=== PATIENT | female | born 1950 | race Caucasian/White ===

== ENCOUNTER 2021-02-13 03:50 | Outpatient (CLI) | payer MEDICARE, BC, SELFPAY ==
[2021-02-13 08:41] LABS: Abs Immature Grans 0.03 10^3/uL (0.0-0.06); Absolute Basophil Count 0.03 10^3/uL (0.0-0.2); Absolute Eosinophil Count 0.07 10^3/uL (0.0-0.7); Absolute Lymphocyte Count 1.37 10^3/uL (1.2-3.4); Absolute Monocyte Count 0.65 10^3/uL (0.1-0.8); Absolute Neutrophil Count 2.29 10^3/uL (1.2-6.7); Basophils % 0.7; Eosinophils % 1.6; HCT 37.6 % (36.0-46.0); HGB 11.9 g/dL (11.2-15.7); Immature Grans % 0.7; Lymphocytes % 30.9; MCH 28.7 pg (27.0-33.0); MCHC 31.6 % (32.0-36.0); MCV 90.6 fL (80-95); MPV 8.4 fL (8.0-11.0); Monocytes % 14.6; Neutrophils % 51.5; Nucleated RBC 0 %; Platelet Count 194 10^3/uL (130-400); RBC 4.15 10^6/uL (3.93-5.22); RDW 13.2 % (11.7-14.6); RDW-SD 43.3 fL; WBC 4.44 10^3/uL (4.4-10.8)
[2021-02-13 08:57] LABS: ALT 44 U/L (14-59); AST 21 U/L (15-37); Albumin 3.4 g/dL (3.4-5.0); Alkaline Phosphatase 68 U/L (46-116); Anion Gap 5.8 mmol/L (3-11); BUN 14 mg/dL (7-18); Bilirubin, Total 0.3 mg/dL (0.2-1.0); CO2 29.2 mmol/L (21.0-32.0); CREATININE 0.8 mg/dL (0.55-1.02); Chloride 105 mmol/L (98-107); Glucose 90 mg/dL (74-106); Potassium 4.4 mmol/L (3.5-5.1); Sodium 140 mmol/L (136-145); Total Protein 6.6 g/dL (6.4-8.2)
== END 2021-02-13 03:51 | disposition home or self-care (01) ==
LOC: LBO 03:50
PROVIDERS: PCP Family Medicine; Visit Provider Internal Medicine Medical Oncology
DX: C34.31 Malignant neoplasm of lower lobe, right bronchus or lung (principal)
CPT/HCPCS: 36415; 80053; 85025

== ENCOUNTER 2021-03-06 03:36 | Outpatient (CLI) | payer MEDICARE, BC, SELFPAY ==
[2021-03-06 12:12] LABS: Abs Immature Grans 0.03 10^3/uL (0.0-0.06); Absolute Basophil Count 0.02 10^3/uL (0.0-0.2); Absolute Eosinophil Count 0.04 10^3/uL (0.0-0.7); Absolute Lymphocyte Count 1.47 10^3/uL (1.2-3.4); Absolute Monocyte Count 0.64 10^3/uL (0.1-0.8); Absolute Neutrophil Count 2.59 10^3/uL (1.2-6.7); Basophils % 0.4; Eosinophils % 0.8; HCT 36.5 % (36.0-46.0); HGB 11.5 g/dL (11.2-15.7); Immature Grans % 0.6; Lymphocytes % 30.7; MCH 29.3 pg (27.0-33.0); MCHC 31.5 % (32.0-36.0); MCV 93.1 fL (80-95); MPV 8.5 fL (8.0-11.0); Monocytes % 13.4; Neutrophils % 54.1; Nucleated RBC 0 %; Platelet Count 191 10^3/uL (130-400); RBC 3.92 10^6/uL (3.93-5.22); RDW 14.1 % (11.7-14.6); RDW-SD 46.7 fL; WBC 4.79 10^3/uL (4.4-10.8)
[2021-03-06 12:25] LABS: ALT 42 U/L (14-59); AST 25 U/L (15-37); Albumin 3.5 g/dL (3.4-5.0); Alkaline Phosphatase 66 U/L (46-116); Anion Gap 4.5 mmol/L (3-11); BUN 13 mg/dL (7-18); Bilirubin, Total 0.2 mg/dL (0.2-1.0); CO2 29.5 mmol/L (21.0-32.0); CREATININE 0.7 mg/dL (0.55-1.02); Calcium 9.1 mg/dL (8.5-10.1); Chloride 106 mmol/L (98-107); Glucose 77 mg/dL (74-106); Potassium 3.9 mmol/L (3.5-5.1); Sodium 140 mmol/L (136-145); Total Protein 6.7 g/dL (6.4-8.2)
== END 2021-03-06 03:37 | disposition home or self-care (01) ==
LOC: LBO 03:36
PROVIDERS: PCP Family Medicine; Visit Provider Internal Medicine Medical Oncology
DX: C34.31 Malignant neoplasm of lower lobe, right bronchus or lung (principal)
CPT/HCPCS: 36415; 80053; 85025

== ENCOUNTER 2021-03-27 01:42 | Outpatient (CLI) | payer MEDICARE, BC, SELFPAY ==
--- OUTSIDE RECORDS SUMMARY | 2021-03-27 01:45 | XMS_ITS ---
:1950 Author Care Team Providers Name Role Phone CARYL COLLIER MD General Surgeon [phone] NATALIIA VALENTE Primary Care Provider [phone] Allergies Code Code System Name Reaction Severity Status Onset NKDA ? Medications Name Status Start Date Stop Date ? ? atorvastatin 20 mg tablet Active ? Not av ailable Take 1 tablet by mouth once daily benzonatate 200 mg capsule Completed ? 11/16 TAKE 1 CAPSULE BY MOUTH THREE TIMES DAILY NEEDED FOR COUGH cephalexin 500 mg capsule Completed ? 2020 TAKE 1 CAPSULE BY MOUTH THREE TIMES DAILY FOR 7 DAYS doxycycline hyclate 100 mg capsule Completed ? 11/16/2020 TAKE 1 CAPSULE BY MOUTH TWICE DAILY ibuprofen 600 mg tablet Completed ? 12/02/19 21 Take 1 tablet 3 times a day by oral route. lorazepam 0.5 mg tablet Completed ? 01/12/20 21 Take 1 tablet 1 hr prior to Procedure. If needed may place 1 tab under tongue 15 min prior to procedure methylprednisolone 4 mg tablets in a dose pack Completed ? 11/16/2020 USE DIRECTED ON PACKAGE mupirocin 2 % topical ointment Completed ? 0 03/16/2019 Problems Name Status Onset Date Source ? Basal Cell Carcinoma of Skin Active 03/16/2019 ? Microscopic Hematuria Active 03/16/2019 ? Palpitations Active 03/16/2019 ? Osteopenia Active 03/30/2020 ? Adenocarcinoma of Lung Active 12/21/2020 ? Procedures Date Name Performed by ? 12/16/2020 Bronchoscopy W/biopsy(s) Information not available Notes: Dr. Christian Turk [facility] / normal airway exam, enlarged node at 11Rs was biopsied, staging examination was performed 04/22/2019 Biopsy of Colon Information not avai lable Notes: [facility] 04/22/2019 Colonoscopy Information not avai lable Notes: polyps; 11-04-2013; 01/28/2006 03/16/2019 DEXA, Axial Skeleton [facility] Radiology (Internal) [address] [place] [address] (Work Place) 03/16/2019 MAMMO, Screening, Tomosynthesis, [facility] Radiology (Internal) Bilateral [address] [place] [address] (Work Place) 03/30/2020 MAMMO, Screening, Tomosynthesis, [facility] Radiology (Internal) Bilateral [address] [place] [address] (Work Place) 11/16/2020 XR, Shoulder, 2 or More View [facility] Radiology (Internal) [address] [place] [address] (Work Place) 11/23/2020 CT, Chest, W/ Contrast [facility] Radiology (Internal) [address] [place] [address] (Work Place) Notes: Patient reports having bi opsy for skin cancer. Results Lab Results Date Name Specimen Result Interpretation Description Value Range Status Address ? 11/28/2020 Creatinine, S ? Crea 0.70 0.52-1.04 Final [place] Serum or mg/dL mg/dL [facility] (Internal) : [address] 03/30/2020 CMP, Serum or S ? g/r 101 74-106 Final [facility] Plasma mg/dL mg/dL [facility] L [facility] (Internal) : [address] ? ? S ? Bun 16 mg/dL 7-17 mg/dL Final Nort h [facility] L ab (Internal) : [address] ? ? S ? Crea 0.80 0.52-1.04 Final North mg/dL mg/dL [facility] L ab (Internal) : [address] ? ? S ? Ca 9.5 8.4-10.2 Final North mg/dL mg/dL [facility] (Internal) : [address] ? ? S ? Na 137 137-145 Final [facility] mmol/L mmol/L [facility] (Internal) : [address] ? ? S ? K 4.4 3.5-5.1 Final [facility] mmol/L mmol/L [facility] ([facility] : [address] ? ? S ? Cl 102 98-107 Final [place] mmol/L mmol/L [facility] (Internal) : [address] ? ? S ? Tco2 27.0 22.0-30.0 Final [place] mmol/L mmol/L [facility] (Internal) : [address] ? ? S ? Tp 6.7 g/dL 6.3-8.2 Final [place] g/dL [facility] (Internal) : [address] ? ? S ? Alb 4.1 g/dL 3.5-5.0 Final [place] g/dL [facility] (Internal) : [address] ? ? S ? Tbil 0.4 0.2-1.3 Final [place] mg/dL mg/dL [facility] (Internal) : [address] ? ? S ? Alp 64 U/L 38-126 U/L Final [facility] (Internal) : [address] ? ? S ? Alt 15 U/L 9-52 U/L Final [place] (Sgpt) [facility] (Internal) : [address] ? ? S ? Ast 27 U/L 14-36 U/L Final [place] (Sgot) [facility] (Internal) : [address] 03/30/2020 Lipid Panel, S High Chol 263 50-200 Final [place] Serum mg/dL mg/dL [facility] (Internal) : [address] ? ? S ? Trig 75 mg/dL 10-150 Final [place] mg/dL [facility] (Internal) : [address] ? ? S High Hdl 62 mg/dL 40-60 Final North mg/dL [facility] (Internal) : [address] ? ? S High Ldl 186 0-130 Final North mg/dL mg/dL [facility] (Internal) : [address] 04/22/2019 Pathology TISS - Report results ? Final N orth Study below [facility] (Internal) : [address] 03/16/2019 BMP, Serum or S - g/r 85 mg/dL 74-106 Florencia l North Plasma mg/dL [facility] (Internal) : [address] ? ? S High Bun 20 mg/dL 7-17 mg/dL Final Nort [facility] (Internal) : [address] ? ? S - Crea 0.70 0.52-1.04 Final [place] mg/dL mg/dL [facility] (Internal) : [address] ? ? S - Ca 9.0 8.4-10.2 Final [place] mg/dL mg/dL [facility] (Internal) : [address] ? ? S - Na 140 137-145 Final [place] mmol/L mmol/L [facility] (Internal) : [address] ? ? S - K 4.2 3.5-5.1 Final [place] mmol/L mmol/L [facility] (Internal) : [address] ? ? S - Cl 105 98-107 Final [place] mmol/L mmol/L [facility] (Internal) : [address] ? ? S - Tco2 29.0 22.0-30.0 Final North mmol/L mmol/L [facility] (Internal) : [address] 03/16/2019 Lipid Panel, S High Chol 252 50-200 Final [place] Serum mg/dL mg/dL [facility] (Internal) : [address] ? ? S - Trig 64 mg/dL 10-150 Final North mg/dL [facility] (Internal) : [address] ? ? S High Hdl 69 mg/dL 40-60 Final North mg/dL [facility] (Internal) : [address] ? ? S High Ldl 170 0-130 Final North mg/dL mg/dL [facility] (Internal) : [address] 02/28/2018 Lipid Panel, S High Chol 232 50-200 Final [place] Serum mg/dL mg/dL [facility] (Internal) : [address] ? ? S - Trig 59 mg/dL 10-150 Final [place] mg/dL [facility] (Internal) : [address] ? ? S High Hdl 68 mg/dL 40-60 Final [place] mg/dL [facility] (Internal) : [address] ? ? S High Ldl 152 0-130 Final [place] mg/dL mg/dL [facility] (Internal) : [address] 02/28/2018 Glucose, S - Fbs 92 mg/dL 74-106 Final No rth Fasting, mg/dL [facility] Serum/plasma Hosp ital Lab (Internal) : [address] 02/28/2018 TSH, Serum or S - Tsh 1.60 0.47-4.68 Fin al [place] Plasma u[IU]/mL u[IU]/mL [facility] : [address] 02/24/2018 Pap Test, MISC - Hpv see ? Final [facility] Thinprep, report [facility] ([facility] : [address] ? ? MISC - Pap see ? Final [place] report [facility] (Internal) : [address] ? ? MISC - Report (added) ? Corrected North results [facility] (Internal) : [address] Past Encounters 01/11/2021 Adenocarcinoma of Lung Klever Lima MD: [address] [facility] [address], Ph. 12/01/2020 Primary Malignant Neoplasm of Lung; Pain of Right Shoulder Joint Klever Lima MD: [address] [facility] [address], Ph. 11/30/2020 Carlos Jackson MD: [address] [facility] [facility] [address], [address], [place] [address], Ph. 11/16/2020 Pain of Right Shoulder Joint Klever Lima MD: [address] [facility] [address], Ph. 03/30/2020 Adult Health Examination; Administration of Influenza Vaccine; Screening Mammography; Hyperlipidemia; Impacted Cerumen in Left Ear AMBROSIO Gonzalez: [address] [place] [phone], Ph. Social History Tobacco Smoking Status Former Smoker Notes: quit 19 Vaccine List Vaccine Type influenza, high-dose, quadrivalent 03/30/2020?0.7 mL influenza, injectable, quadrivalent 07/08/2016 05/05/2018 04/30/2019 pneumococcal conjugate PCV 13 05/05/2018 pneumococcal polysaccharide PPV23 02/07/2016 tetanus toxoid, adsorbed 05/08/2012 Notes: Patient reports she had b oth COVID vaccines in 07/2020, and 08/2020. Plan of Care Reminders Provider Appointments None ? ? recorded. Lab None ? ? recorded. Referral None ? ? recorded. Procedures None ? ? recorded. Surgeries None ? ? recorded. Imaging None ? ? recorded. Vitals 01/11/2021 09:00AM Follow Up 20 Height Weight BMI Blood Pressure 158.75 cm 63.11 kg 25 kg/m2 150/70 mm[Hg] 12/01/2020 10:20AM Same Day 20 Height Blood Pressure 158.75 cm 138/78 mm[Hg] 11/30/2020 02:15PM Consult 30 Height Weight BMI 158.75 cm 64.68 kg 25.7 kg/m2 11/16/2020 02:00PM Acute 20 Height Weight BMI Blood Pressure 158.75 cm 66.45 kg 26.4 kg/m2 112/70 mm[Hg] 03/30/2020 08:20AM AWV 40 Height Weight BMI Blood Pressure 158.75 cm 67.19 kg 26.7 kg/m2 128/78 mm[Hg] 03/16/2019 07:40AM New Patient 40 Height Weight BMI Blood Pressure 158.75 cm 63.67 kg 25.3 kg/m2 130/70 mm[Hg]
--- OUTSIDE RECORDS SUMMARY | 2021-03-27 01:45 | XMS_ITS | Encounter Summary ---
:1950 Author Care Team Providers Name Role Phone Tiesha VALENTE Primary Care Provider [phone] Triston Purdy MD General Surgeon [phone] Reason for Visit None recorded. Assessment and Plan 1. Adenocarcinoma of lung Patient with adenocarcinoma of lung which she is asymptomatic At [facility] Pulmonology, surgery, oncology. Patient is considered for chemotherapy and then surgery. No note of patient needing radiation oncology. At this point a role is as medical home for the patient ? 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 Plan of Care Reminders Provider Appointments Awv 40 04/04/2021 Clarita levy 7:40AM AMBROSIO Gilbert ? Return to on or around Triston Purdy, Office 04/22/2023 Lab None recorded. ? ? Referral [employer] 01/11/2021 [facility] christina Pulmonary Referral Procedures None recorded. ? ? Surgeries None recorded. ? ? Imaging None recorded. ? ? Medications Name Start Date ? ? atorvastatin 20 mg tablet ? Take 1 tablet by mouth once daily Medications Administered None recorded. Vitals Height Weight BMI Blood Pressure 5 ft 2.5 in 139 lbs 2 oz 25 kg/m2 150/70 mm[Hg] Results Lab Results None recorded. Allergies Code Code System Name Reaction Severity Onset NKDA ? ? ? Problems Name Status Onset Date Source ? Basal Cell Carcinoma of Skin Active 03/16/2019 ? Microscopic Hematuria Active 03/16/2019 ? Palpitations Active 03/16/2019 ? Osteopenia Active 03/30/2020 ? Adenocarcinoma of Lung Active 12/21/2020 ? Procedures Date Name Performed by ? 12/16/2020 Bronchoscopy W/biopsy(s) Information not available Notes: Dr. Christian Turk [facility] / normal airway exam, enlarged node at 11Rs was biopsied, staging examination was performed 04/22/2019 Biopsy of Colon Information not avai lable Notes: [facility] 04/22/2019 Colonoscopy Information not avai lable Notes: polyps; 11-04-2013; 01/28/2006 Notes: Patient reports having bi opsy for skin cancer. Vaccine List Vaccine Type influenza, high-dose, quadrivalent 03/30/2020?0.7 mL influenza, injectable, quadrivalent 07/08/2016 05/05/2018 04/30/2019 pneumococcal conjugate PCV 13 05/05/2018 pneumococcal polysaccharide PPV23 02/07/2016 tetanus toxoid, adsorbed 05/08/2012 Notes: Patient reports she had b oth COVID vaccines in 07/2020, and 08/2020. Social History Tobacco Smoking Status Former Smoker Notes: quit 19 Are you currently employed? Y What is your code status? 0 How much tobacco do you chew? none Animal exposure? Y Notes: Cat. What is your level of alcohol Moderate Notes: 1-3 beer per week consumption? Education 12 Have you used IV drugs? N Are you blind or do you have N Notes: W ears corrective difficulty seeing? lenses What was the date of your most 11/16/2020 recent tobacco screening? Do you or have you ever used Never used electronic e-cigarettes or vape? cigarettes Do you have an advanced Y Notes: COLST 03/30/2020, directive? CPR only if witnesse d arrest What is your exercise level? None Live alone or with others? 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 coffee/day What is your occupation? self employed Family History Relation Problem Onset Age of Age Notes Father Heart disease (No N/A , [place] 5 3 Information) yo, pos family history of premature CAD o n father's side Mother Family history of (No N/A Colon Canc er cancer Information) Mother Hyperlipidemia (No N/A (No Notes) Information) Sister Family history of (No N/A Thyroid Ca ncer, cancer Information) Breast Cancer (60s) Functional Status No Impairment. Past Encounters 01/11/2021 Adenocarcinoma of Lung Klever Lima MD: [address] [place] [address], Ph. History of Present Illness Note: <p>12/01/2020: 70 year old female being seen in clinic today to discuss Chest CT from 11/30/2020.</p><p>CT shows spiculated lesion in lung that is HIGHLY suspicious for malignancy</p><p>initially caught after xr shoulder detected nodule in lung and was advised to get CT chest</p><p>h/o smoking</p><p>discussed with radiology and he recommended pulmonology consult for bronchoscopy as this would be difficult to obtain for biopsy per IR</p><p>pt also gildardo have onc consult</p><p>pt with no chest pain/dyspnea</p><p&gt ;
</p><p>01/11/2021: Pt following up from CT chest, and [facility] pulmonary consult on 12/12/2020. Patient has been switched over to [facility] as per the request from pulmonology at [facility] per patient because of the complex nature of the lesion sent over to [facility] for resources. Patient hasreferral to surgery, pulmonology and oncology. There is consideration for 4 rounds of chemotherapy infusion pending follow-up appointment pending appointment with surgery to discuss potential surgical resection as well as port placement. Needs a new referral to pulmonology at [facility]</p>Review of Systems: ROS as noted in the HPI Review of Systems None recorded. Physical Exam ? Notes: <p>
</p>
[2021-03-27 11:07] LABS: Abs Immature Grans 0.03 10^3/uL (0.0-0.06); Absolute Basophil Count 0.02 10^3/uL (0.0-0.2); Absolute Eosinophil Count 0.08 10^3/uL (0.0-0.7); Absolute Lymphocyte Count 1.36 10^3/uL (1.2-3.4); Absolute Monocyte Count 0.65 10^3/uL (0.1-0.8); Absolute Neutrophil Count 1.77 10^3/uL (1.2-6.7); Basophils % 0.5; HCT 32.7 % (36.0-46.0); HGB 10.3 g/dL (11.2-15.7); Immature Grans % 0.8; Lymphocytes % 34.8; MCH 29.6 pg (27.0-33.0); MCHC 31.5 % (32.0-36.0); MPV 8.6 fL (8.0-11.0); Monocytes % 16.6; Neutrophils % 45.3; Nucleated RBC 0 %; Platelet Count 176 10^3/uL (130-400); RBC 3.48 10^6/uL (3.93-5.22); RDW 14.9 % (11.7-14.6); RDW-SD 49.9 fL; WBC 3.91 10^3/uL (4.4-10.8)
[2021-03-27 11:22] LABS: ALT 51 U/L (14-59); AST 38 U/L (15-37); Albumin 3.4 g/dL (3.4-5.0); Alkaline Phosphatase 63 U/L (46-116); Anion Gap 3.6 mmol/L (3-11); BUN 13 mg/dL (7-18); Bilirubin, Total 0.3 mg/dL (0.2-1.0); CO2 32.4 mmol/L (21.0-32.0); CREATININE 0.7 mg/dL (0.55-1.02); Calcium 9.2 mg/dL (8.5-10.1); Chloride 106 mmol/L (98-107); Glucose 102 mg/dL (74-106); Potassium 4.3 mmol/L (3.5-5.1); Sodium 142 mmol/L (136-145); Total Protein 6.5 g/dL (6.4-8.2)
== END 2021-03-27 01:43 | disposition home or self-care (01) ==
LOC: LBO 01:43
PROVIDERS: PCP Family Medicine; Visit Provider Internal Medicine Medical Oncology
DX: C34.31 Malignant neoplasm of lower lobe, right bronchus or lung (principal)
CPT/HCPCS: 36415; 80053; 85025

== ENCOUNTER 2022-05-29 02:54 | Outpatient (CLI) | payer MEDICARE, BC, SELFPAY ==
[2022-05-29 11:44] LABS: Abs Immature Grans 0.03 10^3/uL (0.0-0.06); Absolute Basophil Count 0.07 10^3/uL (0.0-0.2); Absolute Eosinophil Count 0.14 10^3/uL (0.0-0.7); Absolute Lymphocyte Count 1.65 10^3/uL (1.2-3.4); Absolute Monocyte Count 0.85 10^3/uL (0.1-0.8); Absolute Neutrophil Count 4.42 10^3/uL (1.2-6.7); HCT 40.1 % (36.0-46.0); HGB 12.9 g/dL (11.2-15.7); Immature Grans % 0.4; MCH 27.9 pg (27.0-33.0); MCHC 32.2 % (32.0-36.0); MCV 87 fL (80-95); MPV 8.7 fL (8.0-11.0); Monocytes % 11.9; Neutrophils % 61.7; Platelet Count 194 10^3/uL (130-400); RBC 4.62 10^6/uL (3.93-5.22); RDW 12.2 % (11.7-14.6); RDW-SD 39.3 fL; WBC 7.16 10^3/uL (4.4-10.8)
[2022-05-29 12:07] LABS: ALT 17 U/L (14-59); AST 18 U/L (15-37); Albumin 3.9 g/dL (3.4-5.0); Alkaline Phosphatase 77 U/L (46-116); Anion Gap 5.9 mmol/L (3-11); BUN 16 mg/dL (7-18); Bilirubin, Total 0.4 mg/dL (0.2-1.0); CO2 29.1 mmol/L (21.0-32.0); CREATININE 0.9 mg/dL (0.55-1.02); Calcium 9.2 mg/dL (8.5-10.1); Chloride 98 mmol/L (98-107); Estimated GFR 67.92 (mL/min/1.73m2); Glucose 90 mg/dL (74-106); Potassium 4.2 mmol/L (3.5-5.1); Sodium 133 mmol/L (136-145); Total Protein 7.2 g/dL (6.4-8.2)
== END 2022-05-29 02:55 | disposition home or self-care (01) ==
LOC: LBO 02:54
PROVIDERS: PCP Family Medicine; Visit Provider Internal Medicine Medical Oncology
DX: C77.1 Secondary and unspecified malignant neoplasm of intrathoracic lymph nodes (principal)
CPT/HCPCS: 36415; 80053; 83735; 85025

== ENCOUNTER 2022-06-04 03:04 | Outpatient (CLI) | payer MEDICARE, BC, SELFPAY ==
[2022-06-04 07:44] LABS: Abs Immature Grans 0.03 10^3/uL (0.0-0.06); Absolute Basophil Count 0.05 10^3/uL (0.0-0.2); Absolute Eosinophil Count 0.12 10^3/uL (0.0-0.7); Absolute Lymphocyte Count 1.02 10^3/uL (1.2-3.4); Absolute Monocyte Count 0.31 10^3/uL (0.1-0.8); Absolute Neutrophil Count 2.87 10^3/uL (1.2-6.7); Basophils % 1.1; Eosinophils % 2.7; HCT 39.7 % (36.0-46.0); HGB 12.8 g/dL (11.2-15.7); Immature Grans % 0.7; Lymphocytes % 23.2; MCH 28.1 pg (27.0-33.0); MCHC 32.2 % (32.0-36.0); MCV 87 fL (80-95); MPV 9.1 fL (8.0-11.0); Neutrophils % 65.3; Platelet Count 196 10^3/uL (130-400); RBC 4.55 10^6/uL (3.93-5.22); RDW 12.2 % (11.7-14.6); RDW-SD 39.6 fL
[2022-06-04 07:58] LABS: ALT 24 U/L (14-59); AST 15 U/L (15-37); Albumin 3.8 g/dL (3.4-5.0); Alkaline Phosphatase 76 U/L (46-116); Anion Gap 5.5 mmol/L (3-11); BUN 16 mg/dL (7-18); Bilirubin, Total 0.4 mg/dL (0.2-1.0); CO2 30.5 mmol/L (21.0-32.0); CREATININE 0.9 mg/dL (0.55-1.02); Calcium 9.1 mg/dL (8.5-10.1); Chloride 100 mmol/L (98-107); Estimated GFR 67.92 (mL/min/1.73m2); Glucose 126 mg/dL (74-106); Magnesium 1.9 mg/dL (1.8-2.4); Sodium 136 mmol/L (136-145); Total Protein 7.1 g/dL (6.4-8.2)
== END 2022-06-04 03:05 | disposition home or self-care (01) ==
LOC: LBO 03:05
PROVIDERS: PCP Family Medicine; Visit Provider Internal Medicine Medical Oncology
DX: C77.1 Secondary and unspecified malignant neoplasm of intrathoracic lymph nodes (principal)
CPT/HCPCS: 36415; 80053; 83735; 85025

== ENCOUNTER 2022-06-11 04:15 | Outpatient (CLI) | payer MEDICARE, BC, SELFPAY ==
[2022-06-11 12:41] LABS: Abs Immature Grans 0.03 10^3/uL (0.0-0.06); Absolute Basophil Count 0.03 10^3/uL (0.0-0.2); Absolute Eosinophil Count 0.07 10^3/uL (0.0-0.7); Absolute Lymphocyte Count 0.91 10^3/uL (1.2-3.4); Absolute Monocyte Count 0.49 10^3/uL (0.1-0.8); Absolute Neutrophil Count 2.77 10^3/uL (1.2-6.7); Basophils % 0.7; Eosinophils % 1.6; HCT 35.5 % (36.0-46.0); HGB 11.6 g/dL (11.2-15.7); Immature Grans % 0.7; Lymphocytes % 21.2; MCH 28.4 pg (27.0-33.0); MCHC 32.7 % (32.0-36.0); MCV 87 fL (80-95); Monocytes % 11.4; Neutrophils % 64.4; Platelet Count 165 10^3/uL (130-400); RBC 4.09 10^6/uL (3.93-5.22); RDW 12.4 % (11.7-14.6); RDW-SD 39.3 fL
[2022-06-11 12:57] LABS: ALT 26 U/L (14-59); AST 19 U/L (15-37); Albumin 3.5 g/dL (3.4-5.0); Alkaline Phosphatase 67 U/L (46-116); Anion Gap 6.1 mmol/L (3-11); BUN 14 mg/dL (7-18); Bilirubin, Total 0.4 mg/dL (0.2-1.0); CO2 29.9 mmol/L (21.0-32.0); CREATININE 0.8 mg/dL (0.55-1.02); Calcium 8.9 mg/dL (8.5-10.1); Chloride 101 mmol/L (98-107); Estimated GFR 78.24 (mL/min/1.73m2); Glucose 105 mg/dL (74-106); Magnesium 1.8 mg/dL (1.8-2.4); Potassium 4.4 mmol/L (3.5-5.1); Sodium 137 mmol/L (136-145); Total Protein 6.7 g/dL (6.4-8.2)
== END 2022-06-11 04:16 | disposition home or self-care (01) ==
LOC: LBO 04:15
PROVIDERS: PCP Family Medicine; Visit Provider Internal Medicine Medical Oncology
DX: C77.1 Secondary and unspecified malignant neoplasm of intrathoracic lymph nodes (principal)
CPT/HCPCS: 36415; 80053; 83735; 85025

== ENCOUNTER 2022-06-18 03:08 | Outpatient (CLI) | payer MEDICARE, BC, SELFPAY ==
[2022-06-18 07:38] LABS: Abs Immature Grans 0.03 10^3/uL (0.0-0.06); Absolute Basophil Count 0.01 10^3/uL (0.0-0.2); Absolute Eosinophil Count 0.07 10^3/uL (0.0-0.7); Absolute Lymphocyte Count 0.72 10^3/uL (1.2-3.4); Absolute Neutrophil Count 2.06 10^3/uL (1.2-6.7); Basophils % 0.3; Eosinophils % 2.1; HCT 34.1 % (36.0-46.0); HGB 10.8 g/dL (11.2-15.7); Immature Grans % 0.9; Lymphocytes % 21.9; MCH 28.3 pg (27.0-33.0); MCHC 31.7 % (32.0-36.0); MCV 90 fL (80-95); Monocytes % 12.2; Neutrophils % 62.6; Platelet Count 145 10^3/uL (130-400); RBC 3.81 10^6/uL (3.93-5.22); RDW 12.7 % (11.7-14.6); RDW-SD 40.6 fL; WBC 3.29 10^3/uL (4.4-10.8)
[2022-06-18 08:00] LABS: ALT 33 U/L (14-59); AST 22 U/L (15-37); Albumin 3.4 g/dL (3.4-5.0); Alkaline Phosphatase 63 U/L (46-116); Anion Gap 6.8 mmol/L (3-11); BUN 13 mg/dL (7-18); Bilirubin, Total 0.3 mg/dL (0.2-1.0); CO2 27.2 mmol/L (21.0-32.0); CREATININE 0.8 mg/dL (0.55-1.02); Calcium 8.7 mg/dL (8.5-10.1); Chloride 100 mmol/L (98-107); Estimated GFR 78.24 (mL/min/1.73m2); Glucose 114 mg/dL (74-106); Magnesium 1.8 mg/dL (1.8-2.4); Potassium 4.2 mmol/L (3.5-5.1); Sodium 134 mmol/L (136-145); Total Protein 6.5 g/dL (6.4-8.2)
== END 2022-06-18 03:09 | disposition home or self-care (01) ==
LOC: LBO 03:09
PROVIDERS: PCP Family Medicine; Visit Provider Internal Medicine Medical Oncology
DX: C77.1 Secondary and unspecified malignant neoplasm of intrathoracic lymph nodes (principal); C34.31 Malignant neoplasm of lower lobe, right bronchus or lung
CPT/HCPCS: 36415; 80053; 83735; 85025

== ENCOUNTER 2022-06-25 03:17 | Outpatient (CLI) | payer MEDICARE, BC, SELFPAY ==
[2022-06-25 07:41] LABS: Abs Immature Grans 0.04 10^3/uL (0.0-0.06); Absolute Basophil Count 0.02 10^3/uL (0.0-0.2); Absolute Lymphocyte Count 0.59 10^3/uL (1.2-3.4); Absolute Monocyte Count 0.46 10^3/uL (0.1-0.8); Absolute Neutrophil Count 2.45 10^3/uL (1.2-6.7); Basophils % 0.5; Eosinophils % 2.7; HCT 34.1 % (36.0-46.0); HGB 10.9 g/dL (11.2-15.7); Immature Grans % 1.1; Lymphocytes % 16.1; MCH 28.2 pg (27.0-33.0); MCV 88 fL (80-95); MPV 8.4 fL (8.0-11.0); Monocytes % 12.6; Platelet Count 130 10^3/uL (130-400); RBC 3.86 10^6/uL (3.93-5.22); RDW 13.2 % (11.7-14.6); RDW-SD 41.2 fL; WBC 3.66 10^3/uL (4.4-10.8)
[2022-06-25 07:54] LABS: ALT 43 U/L (14-59); AST 25 U/L (15-37); Albumin 3.5 g/dL (3.4-5.0); Alkaline Phosphatase 67 U/L (46-116); Anion Gap 5.5 mmol/L (3-11); BUN 15 mg/dL (7-18); Bilirubin, Total 0.2 mg/dL (0.2-1.0); CO2 28.5 mmol/L (21.0-32.0); CREATININE 0.7 mg/dL (0.55-1.02); Calcium 8.7 mg/dL (8.5-10.1); Chloride 103 mmol/L (98-107); Estimated GFR 91.83 (mL/min/1.73m2); Glucose 82 mg/dL (74-106); Magnesium 1.7 mg/dL (1.8-2.4); Potassium 4.1 mmol/L (3.5-5.1); Sodium 137 mmol/L (136-145); Total Protein 6.6 g/dL (6.4-8.2)
== END 2022-06-25 03:18 | disposition home or self-care (01) ==
LOC: LBO 03:17
PROVIDERS: PCP Family Medicine; Visit Provider Internal Medicine Medical Oncology
DX: C77.1 Secondary and unspecified malignant neoplasm of intrathoracic lymph nodes (principal)
CPT/HCPCS: 36415; 80053; 83735; 85025

== ENCOUNTER 2022-07-03 07:41 | Outpatient (CLI) | payer MEDICARE, BC, SELFPAY ==
[2022-07-03 07:40] LABS: Abs Immature Grans 0.08 10^3/uL (0.0-0.06); Absolute Basophil Count 0.04 10^3/uL (0.0-0.2); Absolute Eosinophil Count 0.08 10^3/uL (0.0-0.7); Absolute Lymphocyte Count 0.52 10^3/uL (1.2-3.4); Absolute Neutrophil Count 2.19 10^3/uL (1.2-6.7); Basophils % 1.2; Eosinophils % 2.3; HCT 33.8 % (36.0-46.0); HGB 10.9 g/dL (11.2-15.7); Immature Grans % 2.3; Lymphocytes % 15.2; MCHC 32.2 % (32.0-36.0); MCV 90 fL (80-95); MPV 8.7 fL (8.0-11.0); Monocytes % 14.7; Neutrophils % 64.3; Platelet Count 127 10^3/uL (130-400); RBC 3.76 10^6/uL (3.93-5.22); RDW 13.7 % (11.7-14.6); RDW-SD 43.1 fL; WBC 3.41 10^3/uL (4.4-10.8)
[2022-07-03 07:55] LABS: ALT 46 U/L (14-59); AST 26 U/L (15-37); Albumin 3.5 g/dL (3.4-5.0); Alkaline Phosphatase 73 U/L (46-116); Anion Gap 6.1 mmol/L (3-11); BUN 17 mg/dL (7-18); Bilirubin, Total 0.3 mg/dL (0.2-1.0); CO2 28.9 mmol/L (21.0-32.0); CREATININE 0.8 mg/dL (0.55-1.02); Chloride 101 mmol/L (98-107); Estimated GFR 78.24 (mL/min/1.73m2); Glucose 135 mg/dL (74-106); Magnesium 1.7 mg/dL (1.8-2.4); Potassium 4.5 mmol/L (3.5-5.1); Sodium 136 mmol/L (136-145); Total Protein 6.7 g/dL (6.4-8.2)
== END 2022-07-03 07:42 | disposition home or self-care (01) ==
LOC: LBO 07:43
PROVIDERS: PCP Family Medicine; Visit Provider Internal Medicine Medical Oncology
DX: C77.1 Secondary and unspecified malignant neoplasm of intrathoracic lymph nodes (principal)
CPT/HCPCS: 36415; 80053; 83735; 85025

== ENCOUNTER 2022-07-10 03:44 | Outpatient (CLI) | payer MEDICARE, BC, SELFPAY ==
[2022-07-10 07:34] LABS: Abs Immature Grans 0.04 10^3/uL (0.0-0.06); Absolute Basophil Count 0.02 10^3/uL (0.0-0.2); Absolute Eosinophil Count 0.06 10^3/uL (0.0-0.7); Absolute Lymphocyte Count 0.49 10^3/uL (1.2-3.4); Absolute Monocyte Count 0.25 10^3/uL (0.1-0.8); Absolute Neutrophil Count 1.47 10^3/uL (1.2-6.7); Basophils % 0.9; Eosinophils % 2.6; HCT 31.8 % (36.0-46.0); HGB 10.2 g/dL (11.2-15.7); Immature Grans % 1.7; MCH 28.7 pg (27.0-33.0); MCHC 32.1 % (32.0-36.0); MCV 90 fL (80-95); MPV 8.3 fL (8.0-11.0); Monocytes % 10.7; Neutrophils % 63.1; Platelet Count 129 10^3/uL (130-400); RBC 3.55 10^6/uL (3.93-5.22); RDW 14.4 % (11.7-14.6); RDW-SD 46.2 fL; WBC 2.33 10^3/uL (4.4-10.8)
[2022-07-10 08:00] LABS: ALT 74 U/L (14-59); AST 37 U/L (15-37); Albumin 3.3 g/dL (3.4-5.0); Alkaline Phosphatase 72 U/L (46-116); Anion Gap 4.3 mmol/L (3-11); BUN 17 mg/dL (7-18); Bilirubin, Total 0.3 mg/dL (0.2-1.0); CO2 27.7 mmol/L (21.0-32.0); CREATININE 0.9 mg/dL (0.55-1.02); Calcium 8.8 mg/dL (8.5-10.1); Chloride 105 mmol/L (98-107); Estimated GFR 67.92 (mL/min/1.73m2); Glucose 122 mg/dL (74-106); Magnesium 1.8 mg/dL (1.8-2.4); Potassium 4.1 mmol/L (3.5-5.1); Sodium 137 mmol/L (136-145); Total Protein 6.6 g/dL (6.4-8.2)
== END 2022-07-10 03:45 | disposition home or self-care (01) ==
LOC: LBO 03:44
PROVIDERS: PCP Family Medicine; Visit Provider Internal Medicine Medical Oncology
DX: C77.1 Secondary and unspecified malignant neoplasm of intrathoracic lymph nodes (principal)
CPT/HCPCS: 36415; 80053; 83735; 85025

== ENCOUNTER 2022-12-31 12:58 | Outpatient (CLI) | payer MEDICARE, BC, SELFPAY ==
[2022-12-31 09:56] LABS: Abs Immature Grans 0.03 10^3/uL (0.0-0.06); Absolute Basophil Count 0.05 10^3/uL (0.0-0.2); Absolute Eosinophil Count 0.53 10^3/uL (0.0-0.7); Absolute Lymphocyte Count 0.89 10^3/uL (1.2-3.4); Absolute Monocyte Count 0.57 10^3/uL (0.1-0.8); Absolute Neutrophil Count 2.88 10^3/uL (1.2-6.7); Eosinophils % 10.7; HCT 36.8 % (36.0-46.0); HGB 11.6 g/dL (11.2-15.7); Immature Grans % 0.6; MCHC 31.5 % (32.0-36.0); MCV 89 fL (80-95); MPV 9.1 fL (8.0-11.0); Monocytes % 11.5; Neutrophils % 58.2; Platelet Count 188 10^3/uL (130-400); RBC 4.15 10^6/uL (3.93-5.22); RDW 13.6 % (11.7-14.6); RDW-SD 44.2 fL; WBC 4.95 10^3/uL (4.4-10.8)
[2022-12-31 10:24] LABS: ALT 23 U/L (14-59); AST 19 U/L (15-37); Albumin 3.4 g/dL (3.4-5.0); Alkaline Phosphatase 90 U/L (46-116); Anion Gap 7.4 mmol/L (3-11); BUN 13 mg/dL (7-18); Bilirubin, Total 0.4 mg/dL (0.2-1.0); CO2 29.6 mmol/L (21.0-32.0); CREATININE 0.8 mg/dL (0.55-1.02); Calcium 9.1 mg/dL (8.5-10.1); Chloride 104 mmol/L (98-107); Estimated GFR 78.24 (mL/min/1.73m2); FREE T4 0.85 ng/dL (0.76-1.46); Glucose 94 mg/dL (74-106); Magnesium 1.7 mg/dL (1.8-2.4); Potassium 4.1 mmol/L (3.5-5.1); Sodium 141 mmol/L (136-145); TSH 2.31 uIU/mL (0.36-3.74); Total Protein 6.7 g/dL (6.4-8.2)
== END 2022-12-31 12:59 | disposition home or self-care (01) ==
LOC: LBO 13:00
PROVIDERS: PCP Family Medicine; Visit Provider Internal Medicine Medical Oncology
DX: Z79.899 Other long term (current) drug therapy (principal); C77.1 Secondary and unspecified malignant neoplasm of intrathoracic lymph nodes; C34.31 Malignant neoplasm of lower lobe, right bronchus or lung
CPT/HCPCS: 36415; 80053; 83735; 84439; 84443; 85025

== ENCOUNTER 2023-03-04 11:20 | Outpatient (CLI) | payer MEDICARE, BC, SELFPAY ==
[2023-03-04 10:40] LABS: Abs Immature Grans 0.03 10^3/uL (0.0-0.06); Absolute Basophil Count 0.04 10^3/uL (0.0-0.2); Absolute Eosinophil Count 0.28 10^3/uL (0.0-0.7); Absolute Lymphocyte Count 1.14 10^3/uL (1.2-3.4); Absolute Monocyte Count 0.77 10^3/uL (0.1-0.8); Absolute Neutrophil Count 3.58 10^3/uL (1.2-6.7); Basophils % 0.7; Eosinophils % 4.8; HCT 39.1 % (36.0-46.0); HGB 12.6 g/dL (11.2-15.7); Immature Grans % 0.5; Lymphocytes % 19.5; MCH 28.9 pg (27.0-33.0); MCHC 32.2 % (32.0-36.0); MCV 90 fL (80-95); MPV 8.8 fL (8.0-11.0); Monocytes % 13.2; Neutrophils % 61.3; Platelet Count 196 10^3/uL (130-400); RBC 4.36 10^6/uL (3.93-5.22); RDW 13.3 % (11.7-14.6); RDW-SD 44.4 fL; WBC 5.84 10^3/uL (4.4-10.8)
[2023-03-04 11:01] LABS: ALT 19 U/L (14-59); AST 20 U/L (15-37); Albumin 3.6 g/dL (3.4-5.0); Alkaline Phosphatase 98 U/L (46-116); Anion Gap 6.1 mmol/L (3-11); BUN 15 mg/dL (7-18); Bilirubin, Total 0.4 mg/dL (0.2-1.0); CO2 28.9 mmol/L (21.0-32.0); CREATININE 0.8 mg/dL (0.55-1.02); Calcium 9.1 mg/dL (8.5-10.1); Chloride 104 mmol/L (98-107); Estimated GFR 78.24 (mL/min/1.73m2); FREE T4 0.79 ng/dL (0.76-1.46); Glucose 93 mg/dL (74-106); Sodium 139 mmol/L (136-145); TSH 2.04 uIU/mL (0.36-3.74); Total Protein 6.9 g/dL (6.4-8.2)
== END 2023-03-04 11:21 | disposition home or self-care (01) ==
LOC: LBO 11:20
PROVIDERS: PCP Family Medicine; Visit Provider Internal Medicine Medical Oncology
DX: C34.31 Malignant neoplasm of lower lobe, right bronchus or lung (principal); C77.1 Secondary and unspecified malignant neoplasm of intrathoracic lymph nodes; Z79.899 Other long term (current) drug therapy
CPT/HCPCS: 36415; 80053; 83735; 84439; 84443; 85025

== ENCOUNTER 2023-04-01 02:13 | Outpatient (CLI) | payer MEDICARE, BC, SELFPAY ==
[2023-04-01 09:58] LABS: Abs Immature Grans 0.03 10^3/uL (0.0-0.06); Absolute Basophil Count 0.04 10^3/uL (0.0-0.2); Absolute Eosinophil Count 0.25 10^3/uL (0.0-0.7); Absolute Lymphocyte Count 1.03 10^3/uL (1.2-3.4); Absolute Monocyte Count 0.62 10^3/uL (0.1-0.8); Absolute Neutrophil Count 3.51 10^3/uL (1.2-6.7); Basophils % 0.7; Eosinophils % 4.6; HCT 40.1 % (36.0-46.0); HGB 12.7 g/dL (11.2-15.7); Immature Grans % 0.5; Lymphocytes % 18.8; MCH 28.7 pg (27.0-33.0); MCHC 31.7 % (32.0-36.0); MCV 91 fL (80-95); MPV 8.8 fL (8.0-11.0); Monocytes % 11.3; Neutrophils % 64.1; Platelet Count 175 10^3/uL (130-400); RBC 4.43 10^6/uL (3.93-5.22); RDW 12.6 % (11.7-14.6); RDW-SD 41.8 fL; WBC 5.48 10^3/uL (4.4-10.8)
[2023-04-01 10:21] LABS: ALT 21 U/L (14-59); AST 21 U/L (15-37); Albumin 3.6 g/dL (3.4-5.0); Alkaline Phosphatase 92 U/L (46-116); Anion Gap 4.4 mmol/L (3-11); BUN 15 mg/dL (7-18); Bilirubin, Total 0.4 mg/dL (0.2-1.0); CO2 29.6 mmol/L (21.0-32.0); CREATININE 0.7 mg/dL (0.55-1.02); Calcium 9.4 mg/dL (8.5-10.1); Chloride 103 mmol/L (98-107); Estimated GFR 91.26 (mL/min/1.73m2); FREE T4 0.86 ng/dL (0.76-1.46); Glucose 95 mg/dL (74-106); Potassium 3.9 mmol/L (3.5-5.1); Sodium 137 mmol/L (136-145); TSH 2.37 uIU/mL (0.36-3.74)
== END 2023-04-01 02:14 | disposition home or self-care (01) ==
LOC: LBO 02:13
PROVIDERS: PCP Family Medicine; Visit Provider Internal Medicine Medical Oncology
DX: Z79.899 Other long term (current) drug therapy (principal); C34.31 Malignant neoplasm of lower lobe, right bronchus or lung; C77.1 Secondary and unspecified malignant neoplasm of intrathoracic lymph nodes
CPT/HCPCS: 36415; 80053; 83735; 84439; 84443; 85025